=== PATIENT | female | born 1945 | race Caucasian/White ===

== ENCOUNTER → 2016-05-31 | Day surgery (SDC) | payer MEDICARE, OTHER ==
[2016-05-23 12:10] VITALS: BMI 36.9
[~2016-05-31] MED LIST: BSS 500 ml-Vancomycin 10 mg-Phenylephrine 1 mg Irrigation IR ONE; CHONDROITIN SULFATE 0.5 ML/PFS INTRAOC ONE; DEXAMETHASONE 4 MG/ML VIAL IV PRN; DIAZEPAM 5 MG TAB PO PRN; FENTANYL 100 MCG/2 ML VIAL IV PRN; FENTANYL 100 MCG/2 ML VIAL ONE; HYDROCODONE 5 MG/ACETAMIN 325 MG TAB PO PRN; Hyaluronate Sodium (Provisc) 5.5 mg/0.55 ml syringe INTRAOC ONE; LABETALOL 20 MG/4 ML SYRINGE IV PRN; LR 1,000 ML IV ONE; LR 1,000 ML IV SCH; MIDAZOLAM 2 MG/2 ML VIAL ONE; NS 1,000 ML IV SCH; NS 250 ML IV SCH; ONDANSETRON HCL 4 MG/2 ML VIAL IV PRN; PHENYLEPHRINE 2.5% OPHTH SOLN 2 ML BOT OP EYE ONE; SCOPOLAMINE TRANSDERMAL PATCH TOP PRN; TETRACAINE 0.5% 2 ML OPHTH SOLN OP EYE ONE; TETRACAINE 0.5% 2 ML OPHTH SOLN OP EYE PRN; TROPICAMIDE 1% OPHTH SOLN 2 ML BOTTLE OP EYE ONE; Vancomycin 10 MG, Phenylephrine 1,000 MCG in Balanced Salt Solution 500 ML IO ONE; hydrALAZINE 20 MG/ML VIAL IV PRN
--- NOTE | 2016-05-31 07:58 | SC.ANESEVA ---
Anesthesia Eval & Plan ([facility]) - Providers Stated Procedure: right eye cataract Surgeon:: Annia Dickerson - Medications/Allergies Allergies: Allergies aspirin Allergy (Verified 05/31/16 07:51) Rash-Generalized ITCHING Cephalosporins Allergy (Verified 05/31/16 07:51) Anaphylaxis* clindamycin Allergy (Verified 05/31/16 07:51) See Comments MOUTH, TONGUE, AND THROAT SWELLING erythromycin base Allergy (Verified 05/31/16 07:51) Anaphylaxis* HIVES montelukast Allergy (Verified 05/31/16 07:51) See Comments VERTIGO penicillin G Allergy (Verified 05/31/16 07:51) Rash-Generalized ITCHING BEE STING Allergy (Uncoded 04/19/16 08:32) Anaphylaxis* Home Medications: Home Medication List Sodium Chloride [Saline Nasal Mist] 126 ml NS DAILY 05/23/16 [History] Current Medication List: Reviewed - Focused Physical Exam NPO since: after Midnight Mallampati: Class II Neck: Full Range of Motion Cardiovascular/Chest: Bradycardia Respiratory: Lungs clear Any problems with anesthesia, including nausea and vomiting?: No Prone to Motion Sickness: No Other: Diagnoses AGE-RELATED NUCLEAR CATARACT, RIGHT EYE (05/31/16) Allergies Allergy/AdvReac Type Severity Reaction Status Date / Time aspirin Allergy Rash-Genera Verified 05/31/16 07:51 lized Cephalosporins Allergy Anaphylaxis Verified 05/31/16 07:51 * clindamycin Allergy See Verified 05/31/16 07:51 Comments erythromycin base Allergy Anaphylaxis Verified 05/31/16 07:51 * montelukast Allergy See Verified 05/31/16 07:51 Comments penicillin G Allergy Rash-Genera Verified 05/31/16 07:51 lized BEE STING Allergy Anaphylaxis Uncoded 04/19/16 08:32 * Home Medications Medication Instructions Recorded Last Taken Type Adalimumab [Humira] 04/14/16 Unknown History Albuterol Sulfate [Proair 2 puff INH Q4-6H PRN 04/14/16 05/31/16 History Respiclick] Artificial Tears PRN 04/14/16 Unknown History Beclomethasone Dipropionate [Qvar] 2 puff INH DAILY 04/14/16 Unknown History Cholecalciferol (Vitamin D3) 2,000 unit PO DAILY 04/14/16 Unknown History [Vitamin D3] Enalapril Maleate 5 mg PO DAILY 04/14/16 04/19/16 History Epinephrine [Epipen 2-Hernandez] 0.3 ml IM DIR PRN 04/14/16 Unknown History Estradiol 0.5 mg PO DAILY 04/14/16 Unknown History Fluticasone Propionate [Flovent 2 sprays INTRANAS DAILY 04/14/16 05/31/16 History Diskus 50 mcg] Metformin HCl 500 mg PO BID 04/14/16 Unknown History Omeprazole [Prilosec] 20 mg PO BID 04/14/16 05/31/16 History Sertraline HCl 100 mg PO DAILY 04/14/16 Unknown History Tramadol HCl 50 mg PO BID 04/14/16 04/19/16 History Triamcinolone Acetonide 1 dayanna TOP DIR PRN 04/14/16 Unknown History Sodium Chloride [Saline Nasal Mist] 126 ml NS DAILY 05/23/16 Unknown History Height and Weight Patient's height 5 ft 3 in Patient's weight 94.55 kg Weight (Calculated Kilograms) 94.550 BMI 36.9 - Anesthetic Plan Anesthesia Type: MAC ASA Class: 3 - Focused Review of Systems Cardiac History: Yes: Hx Hypertension, Hx Cardiac Disorders HEENT: Yes: Cataracts, Other HEENT Problems Respiratory: Yes: Hx Asthma, Hx Sleep Apnea (CPAP) Gastrointestinal: Yes: Hx Gastroesophageal Reflux Disease, Hx Gastrointestinal Disorders Neurological/Musculoskeletal: Yes: Hx Back Pain (LOWER BACK), Hx Neurological Disorders Endocrine: Yes: Hx Non-Insulin Dependent Diabetes Smoking Status: Never smoker Other Surgical History: KDINEY STONES
[2016-05-31 08:03] VITALS: TEMP 97.8
--- NOTE | 2016-05-31 08:58 | HIMOPRPT ---
DATE OF PROCEDURE: 05/31/16 PREOPERATIVE DIAGNOSIS: Cataract Right eye. POSTOPERATIVE DIAGNOSIS: Cataract Right eye. PROCEDURE: Cataract extraction by phacoemulsification of the Right eye SURGEON: Annia Dickerson MD. ANESTHESIA: IV Sedation/Topical. COMPLICATIONS: None. PRE-OPERATIVE EVALUATION: The patient has been examined and deemed medically stable for cataract extraction with no apparent need for inpatient observation; outpatient setting is appropriate. Patient appears to be oriented to time, place and person. PROCEDURE IN DETAIL: The correct eye confirmed by patient, doctor, staff and paperwork. The operative eye was then marked by the doctor in the preoperative area. Eye drops were instilled into the operative eye to dilate the pupil. The patient was transported to the operating room and was placed in the supine position. A time out was performed before the beginning of the procedure. The operative eye was prepped and draped in the usual sterile fashion for ophthalmic surgery, taking care to isolate the lashes from the surgical field. Topical anesthetic drops were instilled into the operative eye. A lid speculum was placed. Betadine 5% was instilled in the operative eye for antiseptic. Microscope was brought into place for use throughout the case. The eye was inspected. A paracentesis incision was created with a side port knife. The temporal limbal corneal incision was performed with a harvey blade. Viscoelastic was injected into the anterior chamber. Capsule forceps were used to create a capsulorhexis. Hydrodissection was performed with BSS. The nucleus was removed by phacoemulsification. Phaco time is noted below. The remaining cortical material was removed by I&A. The capsular bag was noted to be intact and distended with viscoelastic. The Intraocular lens was placed into the intact bag and centered without difficulty. The remaining viscoelastic was removed by I&A. Betadine 5% drops were placed to inspect wound and for antisepsis. Inspection revealed watertight wounds. The lid speculum was removed. Postoperative medications were instilled into the eye and a shield secured over the operative eye. IOL Type [id number] SN [id number] IOL Power 19.5 CDE 5.29 Discharge Summary: There were no complications and the patient was taken to the postoperative area in good condition. Postoperative instructions and outpatient follow up time were given.
[2016-05-31 09:04] VITALS: BP 147/69; PULSE 77
--- NOTE | 2016-05-31 09:19 | SC.ANESPOS ---
Post-Anesthesia Note LOC: Fully Awake Post-Anesthesia Assessment: Awake, Returned to Baseline, Hemodynamically Stable , Pain Control Adequate Phase I & II Recovery Complete: Yes Apparent Anesthesia Complication: No : N - Vital Signs Blood Pressure: 147/69 Pulse: 77 Resp Rate: 18 O2 Sat: 98 Temp: 97.8 F
== END ==
LOC: CPSC 06:58
PROVIDERS: ATTEND Ophthalmology
PROC: 08RJ3JZ Replacement of Right Lens with Synthetic Substitute, Percutaneous Approach (ICD-10-PCS; principal; 2016-05-31 09:00)
DX: H25.11 Age-related nuclear cataract, right eye (principal); E11.9 Type 2 diabetes mellitus without complications; G62.9 Polyneuropathy, unspecified; Z79.84 Long term (current) use of oral hypoglycemic drugs; I10 Essential (primary) hypertension; K21.9 Gastro-esophageal reflux disease without esophagitis; Z99.81 Dependence on supplemental oxygen; Z79.899 Other long term (current) drug therapy; G47.33 Obstructive sleep apnea (adult) (pediatric)
CPT/HCPCS: 66984; 82962; A9270; V2632; J2250; J3010; J3490